=== PATIENT | female | born 1950 | race Caucasian/White ===

== ENCOUNTER → 2017-06-12 | Outpatient (CLI) | payer MEDICARE ==
[~2017-06-12] MED LIST: AMOX875T20 PO; CALC-179 PO; CYCL-36 PO; EXCEDRIN; GLUC250C5 PO; LORT5TAB PO; TAB-TAB PO; [UNRECOGNIZED DRUG - CODE] PO
--- NOTE | 2017-06-13 09:03 | RSPPFT ---
DATE OF PROCEDURE: 06/12/17 COMMENTS: Spirometry shows FVC of 2.7 at 94% of predicted, FEV1 of 1.8 at 79%, FEV1/FVC ratio is decreased. Flow is decreased at FEF 50, FEF 75 and FEF 25-75. There is no response after bronchodilator treatment. Lung volumes show residual volume is normal. TLC is normal. Diffusion capacity is normal when corrected for lung volume. Flow volume loop indicates terminal air obstruction. IMPRESSION: 1. Mild small airways obstructive lung disease. 2. No response after bronchodilator treatment. 3. Lung volumes are normal. 4. Normal diffusion capacity.
== END ==
LOC: PHRSP 08:43
PROVIDERS: ATTEND Specialist
DX: R05 Cough (principal)
CPT/HCPCS: 94060; 94726; 94729